=== PATIENT | male | born 1980 | race Caucasian/White ===

== ENCOUNTER → 2017-01-08 | Outpatient (CLI) | payer MEDICAID, OTHER ==
[2017-01-08 19:23] LABS: BASO % 0.4 % (0.0-1.0); EOS # 0.2 K/mm3 (0.0-0.50); LYMPH # 3.6 K/mm3 (1.5-4.5); LYMPH % 50.5 % (24.0-44.0); MEAN CORPUSCULAR HEMOGLOBIN 31.1 pg (27.0-33.0); MEAN CORPUSCULAR HGB CONC 33.7 g/dl (32.0-36.5); MEAN CORPUSCULAR VOLUME 92.3 fl (80.0-96.0); MONO # 0.4 K/mm3 (0.0-0.8); MONO % 6.2 % (0.0-5.0); NEUTROPHILS # 2.7 K/mm3 (1.8-7.7); NEUTROPHILS % 37.1 % (36.0-66.0); WHITE BLOOD COUNT 7.2 K/mm3 (4.0-10.0)
[2017-01-08 21:00] LABS: ALBUMIN 4.5 GM/DL (3.2-5.2); ALKALINE PHOSPHATASE 126 U/L (45-117); ALT/SGPT 199 U/L (12-78); ANION GAP 6 MEQ/L (8-16); AST/SGOT 134 U/L (15-37); BILIRUBIN,TOTAL 1.3 MG/DL (0.2-1.0); BLOOD UREA NITROGEN 17 MG/DL (7-18); CALCIUM LEVEL 9.7 MG/DL (8.5-10.1); CARBON DIOXIDE LEVEL 33 MEQ/L (21-32); CHLORIDE LEVEL 100 MEQ/L (98-107); GLOMERULAR FILTRATION RATE > 60.0 (>60); GLUCOSE, FASTING 75 MG/DL (70-105); POTASSIUM SERUM 4.4 MEQ/L (3.5-5.1); SODIUM LEVEL 139 MEQ/L (136-145); TOTAL PROTEIN 8.6 GM/DL (6.4-8.2)
[2017-01-09 11:17] LABS: HEPATITIS B SURFACE ANTIBODY POSITIVE (POSITIVE)
== END ==
LOC: M LAB 18:25
PROVIDERS: ATTEND Physician Assistant Medical
DX: F41.1 Generalized anxiety disorder (principal); B18.2 Chronic viral hepatitis C

== ENCOUNTER 2017-01-17 12:37 | Emergency (ER) | payer OTHER ==
[~2017-01-17] VITALS: Ht 177.8 cm; Wt 68.0 kg
[2017-01-17] MEDS ORDERED: IBUPROFEN 600 MG TAB PO ONE (13:30)
[2017-01-17] MEDS ORDERED: ACETAMINOPHEN TAB 650MG DOSE (2X325MG) PO ONE (13:30)
[2017-01-17] MEDS ORDERED: IBUP600T26 PO (14:13)
[2017-01-17] MEDS ORDERED: TYLE325T5 PO (14:13)
[2017-01-17 14:29] VITALS: BP 129/77
--- NOTE | 2017-01-18 08:06 | REP ---
LEFT ANKLE: HISTORY: Pain. FINDINGS: No acute fracture or destructive osseous lesion. The mortise is intact. Signed by Lucien Velázquez DO 01/18/2017 09:55 A
== END 2017-01-17 14:42 | disposition home or self-care (01) ==
LOC: M ED 13:27
DX: S93.402A Sprain of unspecified ligament of left ankle, initial encounter (principal); X50.0XXA Overexertion from strenuous movement or load, initial encounter; Y92.89 Other specified places as the place of occurrence of the external cause; Y93.89 Activity, other specified; Y99.8 Other external cause status; F41.9 Anxiety disorder, unspecified

== ENCOUNTER 2017-10-24 08:46 | Emergency (ER) | payer MEDICAID, OTHER | END 2017-10-24 11:16 | disposition home or self-care (01) | LOC: M ED 08:46 | DX: F12.10 Cannabis abuse, uncomplicated (principal); B19.9 Unspecified viral hepatitis without hepatic coma; Z79.899 Other long term (current) drug therapy; Z79.891 Long term (current) use of opiate analgesic; F17.210 Nicotine dependence, cigarettes, uncomplicated | CPT/HCPCS: 99283 ==

== ENCOUNTER → 2018-12-28 | Outpatient (CLI) | payer OTHER ==
[~2018-12-28] MED LIST: GABA-845 PO; GABA600T4 PO; IBUP-1022 PO; SUBO8MIS PO; TYLE325T5 PO
[2018-12-28 15:15] LABS: HEMATOCRIT 37.7 % (42.0-52.0); HEMOGLOBIN 11.9 g/dl (13.5-17.5); MEAN CORPUSCULAR HEMOGLOBIN 26.4 pg (27.0-33.0); MEAN CORPUSCULAR HGB CONC 31.6 g/dl (32.0-36.5); MEAN CORPUSCULAR VOLUME 83.6 fl (80.0-96.0); PLATELET COUNT, AUTOMATED 246 10^3/uL (150-450); RED BLOOD COUNT 4.51 10^6/uL (4.30-6.10); WHITE BLOOD COUNT 12.8 10^3/uL (4.0-10.0)
[2018-12-28 15:52] LABS: BLOOD UREA NITROGEN 14 MG/DL (7-18); CALCIUM LEVEL 9.4 MG/DL (8.5-10.1); CARBON DIOXIDE LEVEL 25 MEQ/L (21-32); CHLORIDE LEVEL 101 MEQ/L (98-107); CREATININE FOR GFR 0.88 MG/DL (0.70-1.30); FREE T4 1.36 NG/DL (0.76-1.46); GLOMERULAR FILTRATION RATE > 60.0 (>60); GLUCOSE, FASTING 95 MG/DL (70-100); POTASSIUM SERUM 4.5 MEQ/L (3.5-5.1); SODIUM LEVEL 133 MEQ/L (136-145)
== END ==
LOC: M WUC 14:04
PROVIDERS: ATTEND Nurse Practitioner Primary Care
DX: R60.0 Localized edema (principal)

== ENCOUNTER 2019-01-12 10:40 | Emergency (ER) | payer OTHER ==
[~2019-01-12] VITALS: Ht 175.3 cm; Wt 65.5 kg
[2019-01-12] MEDS ORDERED: WELLTAB38 PO (10:51)
[2019-01-12] MEDS ORDERED: NS 1,000 ML IV ONE ×2 (11:00)
[2019-01-12] MEDS ORDERED: MORPHINE 2 MG/ML 1ML SYRINGE (J2270) IV ONE (11:00)
[2019-01-12 11:43] LABS: BASO % 0.2 % (0.0-1.0); HEMATOCRIT 32.4 % (42.0-52.0); HEMOGLOBIN 10.6 g/dl (13.5-17.5); LYMPH # 1.5 10^3/uL (1.5-4.5); LYMPH % 8.3 % (24.0-44.0); MEAN CORPUSCULAR HEMOGLOBIN 25.3 pg (27.0-33.0); MEAN CORPUSCULAR HGB CONC 32.7 g/dl (32.0-36.5); MEAN CORPUSCULAR VOLUME 77.3 fl (80.0-96.0); MONO # 0.9 10^3/uL (0.0-0.8); MONO % 5.3 % (0.0-5.0); NEUTROPHILS # 15.1 10^3/uL (1.8-7.7); NEUTROPHILS % 85.4 % (36.0-66.0); PLATELET COUNT, AUTOMATED 112 10^3/uL (150-450); RED BLOOD COUNT 4.19 10^6/uL (4.30-6.10); WHITE BLOOD COUNT 17.7 10^3/uL (4.0-10.0)
[2019-01-12 12:07] LABS: INR 1.44; PARTIAL THROMBOPLASTIN TIME 34.3 SECONDS (25.4-37.6); PROTHROMBIN TIME 17.8 SECONDS (12.1-14.4)
[2019-01-12 12:16] LABS: ALBUMIN 2.6 GM/DL (3.2-5.2); ALT/SGPT 73 U/L (12-78); AMYLASE 36 U/L (25-115); BILIRUBIN,DIRECT 1.6 MG/DL (0.0-0.2); BILIRUBIN,TOTAL 3.3 MG/DL (0.2-1.0); BLOOD UREA NITROGEN 29 MG/DL (7-18); CALCIUM LEVEL 8.4 MG/DL (8.5-10.1); CARBON DIOXIDE LEVEL 26 MEQ/L (21-32); CHLORIDE LEVEL 97 MEQ/L (98-107); CREATININE FOR GFR 1.37 MG/DL (0.70-1.30); GLOMERULAR FILTRATION RATE > 60.0 (>60); GLUCOSE, FASTING 110 MG/DL (70-100); LIPASE 137 U/L (73-393); POTASSIUM SERUM 4.8 MEQ/L (3.5-5.1); SODIUM LEVEL 130 MEQ/L (136-145); TOTAL PROTEIN 7.7 GM/DL (6.4-8.2)
[2019-01-12] MEDS ORDERED: ISOVUE-370 76% 100ML VIAL (Q9967) As Ordered ONE (12:26)
[2019-01-12] MEDS ORDERED: MORPHINE 4 MG/ML 1ML VIAL/SYRINGE (J2270) IV ONE ×2 (13:30→17:15)
--- NOTE | 2019-01-12 14:20 | REP ---
Chest two views HISTORY: Leukocytosis Comparison: 05/13/2009 The lungs are clear. The heart is normal in size. The pulmonary vasculature is normal in appearance. The bony structure is intact. IMPRESSION: No acute disease. Electronically Signed by Dandre Dimas MD 01/12/2019 02:11 P
--- NOTE | 2019-01-12 14:53 | REP ---
CT ABDOMEN AND PELVIS WITH IV CONTRAST: TECHNIQUE: Axial contrast enhanced images from the lung bases to the pubic symphysis using 100 mL Isovue 370 intravenous contrast material with multiplanar reformations. There is a small left pleural effusion in the visualized lung bases. A couple of tiny calcified granulomas are seen in the liver without other abnormality. Multiple gallstones are seen in the gallbladder without biliary dilatation. The spleen is enlarged. It measures approximately 15 cm in length. There are abnormal peripheral hypodensities involving the spleen predominantly posterolaterally as well as anteriorly and superiorly having the appearance of areas of ischemia and/or infarction. There also appears to be some degree of splenic rupture with mild surrounding fluid and a small subcapsular hematoma posteriorly. The adrenals and pancreas are unremarkable. Subcentimeter cyst is seen in the upper pole of the left kidney. Small wedge-shaped density peripherally laterally in the mid left kidney is seen and there is a similar-appearing larger peripheral hypodensity, which is somewhat wedge-shaped in the upper pole of the right kidney. These areas are suspicious for ischemia/infarction. There is no hydronephrosis bilaterally. There is no abdominal aortic aneurysm. There is good opacification of the celiac and superior mesenteric arteries with contrast. Branches of these arteries also appear well-opacified with no definite filling defect. No definite filling defect is seen in either opacified renal artery. I see no adenopathy. No free air is seen. I see no bowel wall thickening. I cannot identify the appendix. There is mild free fluid in the pelvis. Urinary bladder is mildly distended and grossly unremarkable. Portal vein and splenic vein are dilated. Portal vein measures up to 16-17 mm in diameter compatible with portal hypertension, with no filling defect. IMPRESSION: Splenomegaly with peripheral, somewhat wedge-shaped areas of hypodensity throughout the spleen suggesting areas of ischemia and infarction. I suspect superimposed rupture of the spleen with mild perisplenic fluid and a small posterior subcapsular hematoma. There is some mild free fluid in the pelvis. There is a small left effusion. There is a wedge-shaped area of hypodensity in the upper pole of the right kidney likely representing an area of ischemia/infarction with a similar small area in the lateral mid left kidney. Visualized arterial structures appear to fill well with IV contrast with no definite filling defect. Multiple gallstones are seen in the gallbladder. 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 Findings are discussed with Kel Chou at the time of the examination. Electronically Signed by Kirit Miller MD 01/14/2019 11:52 A
--- NOTE | 2019-01-12 15:03 | ECGEPIP ---
Stationary ECG Study [facility] - ED Test Date: 2019-01-12 Pat Name: PAULETTE JEREZ Department: Room: - Gender: M [employer]: : 1980 Requested By: VAUGHN VIEIRA PA-C. Order Number: [id number] Reading MD: Griffin Garcia Measurements Intervals [place] Rate: 116 P: 34 TN: 112 QRS: 42 QRSD: 94 T: 29 QT: 311 QTc: 433 Interpretive Statements SINUS TACHYCARDIA WITH SHORT TN INTERVAL Comparison tracing not on file Electronically Signed On 01-12-2019 15:02:40 EDT by Griffin Garcia
[2019-01-12 15:12] LABS: ERYTHROCYTE SEDIMENTATION RATE 44 mm/hr (0-15)
[2019-01-12] MEDS ORDERED: VANCOMYCIN HCL 1,000 MG, VIAL MATE ADAPTER 1 EACH in D5W 250 ML IV ONE (17:00)
--- NOTE | 2019-01-12 17:09 | ECHO ---
DATE OF PROCEDURE: 01/12/2019 REFERRING PHYSICIAN: Gaston Camarena MD INDICATION: Infective endocarditis. HEIGHT: 175 cm WEIGHT: 65 kg 2D MEASUREMENTS: Aortic annulus: 2.2 cm Aortic root: 2.9cm Left atrium: 3.8 cm Left ventricle diastole: 5.95 cm Ventricular septum: 0.90 cm Posterior wall: 0.92 cm Inferior vena cava: 1.6 cm (more than 50% respiratory variation) DOPPLER MEASUREMENTS: No aortic stenosis. Moderate aortic regurgitation. Aortic valve velocity: 225 cm/s LVOT velocity: 202 cm/s Very mild mitral regurgitation. Mitral E velocity: 133 cm/s Mitral A velocity: 76.4 cm/s Mitral deceleration time: 121 ms Mild tricuspid regurgitation. Trace pulmonic regurgitation. Pulmonary artery systolic pressure: 36 mmHg MITRAL ANNULAR TISSUE DOPPLER: E prime lateral: 8.05 cm/s DESCRIPTION: Rhythm was sinus tachycardia. Image quality was excellent. This was a 2D, M-mode, color flow Doppler and pulse wave Doppler examination that included mitral annular tissue Doppler. CONCLUSIONS: 1. Large vegetation which appears to be attached to the right aortic cusp on the ventricular side which measured 2.7 cm in length and 0.8 cm in width. Aortic valve was three-cuspid and other than the vegetation appears to be structurally normal. Moderate aortic regurgitation. No aortic stenosis. 2. Mildly dilated left ventricle with normal left ventricle (LV) wall thickness. Normal regional LV wall motion and wall thickening. LV systolic function at the lower limits of normal LVEF 50% (3D) . Normal LV diastolic function. 3. Suggestive of mild elevation of pulmonary artery systolic pressure. 4. Normal right ventricle size and systolic function. 5. No vegetation seen on the mitral, tricuspid, or pulmonic valve. 6. Small pericardial effusion especially around the right ventricle. No diastolic chamber collapse. ADDITIONAL COMMENTS AND RECOMMENDATIONS: Recommend the patient be transferred to either [facility] or [facility] for consideration of aortic valve replacement.
[2019-01-12] MEDS ORDERED: VANCOMYCIN HCL 500 MG in D5W MINI-BAG PLUS 100 ML IV ONE (18:00)
[2019-01-12 19:32] VITALS: BP 112/59
[2019-01-13] MEDS ORDERED: VANCOMYCIN HCL 1,000 MG, VIAL MATE ADAPTER 1 EACH in D5W 250 ML IV SCH (06:00)
== END 2019-01-12 19:37 | disposition short-term general hospital (02) ==
LOC: M ED 10:40
DX: E86.0 Dehydration (principal); I33.0 Acute and subacute infective endocarditis; B19.20 Unspecified viral hepatitis C without hepatic coma; I63.40 Cerebral infarction due to embolism of unspecified cerebral artery; D72.829 Elevated white blood cell count, unspecified; R01.1 Cardiac murmur, unspecified; R00.0 Tachycardia, unspecified; R16.1 Splenomegaly, not elsewhere classified; Z79.899 Other long term (current) drug therapy; Z72.0 Tobacco use
CPT/HCPCS: 36415; 71046; 74177; 80048; 80076; 82150; 83605; 83690; 85025; 85610; 85652; 85730; 86140; 87040; 87077; 87186; 93005; 93306; 96374; 96375; 96376; 99284; J2270; J3370; Q9967

== ENCOUNTER 2019-11-21 00:05 | Emergency (ER) | payer MEDICAID, OTHER ==
[~2019-11-21] VITALS: Ht 177.8 cm; Wt 73.2 kg
[~2019-11-21 00:05] MED LIST changes: +WELLTAB38 PO
[2019-11-21] MEDS ORDERED: MORPHINE 4 MG/ML 1ML VIAL/SYRINGE (J2270) IV PRN (00:30)
[2019-11-21] MEDS ORDERED: ONDANSETRON 4MG/2ML VIAL (J2405) IV ONE (00:30)
[2019-11-21] MEDS ORDERED: ISOVUE-370 76% 100ML VIAL (Q9967) As Ordered ONE (00:32)
[2019-11-21] MEDS: HYDROMORPHONE HCL 0.5 MG/ 0.5 ML SYRINGE (J1170 PER 1) IV PRN ×2 (00:46→00:57)
[2019-11-21] MEDS ORDERED: HEPARIN DRIP 25,000 UNITS in IV 1 EA IV SCH (01:21)
[2019-11-21] MEDS ORDERED: HEPARIN SOD (PORCINE) 5000 UNITS/ML VIAL (J1644 PER 1000UNITS) IV ONE (01:30)
[2019-11-21 01:52] VITALS: BP 109/68
[2019-11-21 01:54] LABS: BASO % 0.2 % (0.0-1.0); EOS # 0.1 10^3/uL (0.0-0.5); EOS % 0.4 % (0.0-3.0); HEMATOCRIT 38.4 % (42.0-52.0); HEMOGLOBIN 12.4 g/dl (13.5-17.5); LYMPH # 1.7 10^3/uL (1.5-5.0); LYMPH % 9.8 % (24.0-44.0); MEAN CORPUSCULAR HEMOGLOBIN 28.3 pg (27.0-33.0); MEAN CORPUSCULAR HGB CONC 32.3 g/dl (32.0-36.5); MEAN CORPUSCULAR VOLUME 87.7 fl (80.0-96.0); MONO # 1.5 10^3/uL (0.0-0.8); MONO % 8.6 % (0.0-5.0); NEUTROPHILS # 13.6 10^3/uL (1.5-8.5); NEUTROPHILS % 80.2 % (36.0-66.0); PLATELET COUNT, AUTOMATED 295 10^3/uL (150-450); RED BLOOD COUNT 4.38 10^6/uL (4.30-6.10); WHITE BLOOD COUNT 16.9 10^3/uL (4.0-10.0)
[2019-11-21 02:05] LABS: INR 1.3; PROTHROMBIN TIME 15.9 SECONDS (11.8-14.0)
[2019-11-21 02:06] LABS: PARTIAL THROMBOPLASTIN TIME 33.1 SECONDS (25.0-38.4)
--- NOTE | 2019-11-21 10:16 | REP ---
REPEAT DICTATION CT ANGIOGRAPHY OF THE ABDOMEN, PELVIS, AND BILATERAL LOWER EXTREMITY RUNOFF ARTERIES WITH IV CONTRAST: HISTORY: Severe leg pain. Loss of pulses. Preliminary report is provided at time of exam by [facility]. CT CONTRAST DOSE: 100 mL of intravenous Isovue 370. Intravenously administered. TECHNIQUE: Helical scanning is acquired and 3 mm axial images are reformatted. Coronal and sagittal MPR images are generated. Surface rendered 3D images are generated and reviewed as well. Comparison CT study abdomen and pelvis January 12, 2019. FINDINGS: Previously noted splenic and renal infarctions are improved. There is a hypervascular nodule in the upper pole of the right kidney at the level of the infarction 9 mm in diameter which could be a renal artery branch aneurysm. This is a new finding. Previously noted hypervascular 16 mm lesion in the left mesentery is no longer apparent. Celiac, superior mesenteric, inferior mesenteric arteries are patent. Singular nonstenotic renal arteries are observed. The suprarenal and infrarenal abdominal aorta are generally somewhat small in caliber but intact. Incidental note is made of cholelithiasis. The common iliac, external iliac, and internal iliac arteries are patent bilaterally. The left external iliac is unremarkable. The common femoral and profunda femoral arteries appear intact. Left superficial femoral artery appears to be widely patent. The left popliteal and trifurcation arteries and calf runoff arteries are intact. On the right, the external iliac artery is patent. There is an abrupt occlusion of the common femoral artery on the right consistent with embolic occlusion. There is reconstituted flow in the profunda femoral artery. There is segmental reconstitution of the superficial femoral artery at mid and distal SFA levels. Segmental occlusion of the distal SFA is seen in the adductor canal. Popliteal artery is patent on the right but small. The calf trifurcation arteries are patent. The right peroneal artery and the anterior tibial artery are not visualized beyond mid calf level. The posterior tibial artery appears patent across the ankle. 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 Patent posterior tibial artery on the right. 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 Electronically Signed by Olaf Pham MD 11/21/2019 10:57 A
== END 2019-11-21 02:01 | disposition short-term general hospital (02) ==
LOC: M ED 00:05
DX: I74.3 Embolism and thrombosis of arteries of the lower extremities (principal); I33.0 Acute and subacute infective endocarditis; F19.10 Other psychoactive substance abuse, uncomplicated; F17.200 Nicotine dependence, unspecified, uncomplicated; F12.10 Cannabis abuse, uncomplicated; Z95.2 Presence of prosthetic heart valve
CPT/HCPCS: 36415; 75635; 80047; 83605; 85025; 85610; 85730; 86140; 96374; 96375; 99284; J1170; J1644; J2270; J2405; Q9967

== ENCOUNTER → 2019-11-25 | Outpatient (REF) | LOC: M LAB 13:59 | DX: Z02.79 Encounter for issue of other medical certificate ==